=== PATIENT | female | born 1945 | race Caucasian/White ===

== ENCOUNTER 2021-05-10 09:03 | Emergency (ER) | payer MEDICARE, BC ==
[2021-05-10] MEDS ORDERED: GI Cocktail Oral Solution 30 ML PO ONE (10:07)
[2021-05-10 10:12] LABS: ANION GAP 18.9 mEq/L (7-13); CHLORIDE,CL 100 mmol/L (98-107); SODIUM,NA 136 mmol/L (136-145)
--- NOTE | 2021-05-10 10:15 | EDM.PDOC ---
ED HPI GENERAL MEDICAL PROBLEM - General Chief Complaint: Chest Pain Stated Complaint: [id number] HEARTBURN FOR THE PAST FEW DAYS Time Seen by Provider: 05/10/21 09:50 Source of Information: Reports: Patient, RN, RN Notes Reviewed History Limitations: Reports: No Limitations - History of Present Illness INITIAL COMMENTS - FREE TEXT/NARRATIVE: Luisa is a 75 y/o female who presents to the ED via personal vehicle with complaints of chest pain and shortness of breath. The patient reports her symptoms began approximately five days ago and have progressed in severity over that time. She characterizes her pain as a dull ache that radiates across her chest into both arms. She has not taken any medications for her symptoms. 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 The patient denies fever, shaking chills, vision changes, palpitations, nausea, vomiting, abdominal pain, dysuria, hematuria, diarrhea, or constipation. Her last meal was last evening at 1800. Chest Pain Score (Numeric/FACES): 7 - Related Data Allergies Allergy/AdvReac Type Severity Reaction Status Date / Time GIO Inhibitors Allergy Other Verified 05/10/21 09:34 Home Meds: Home Meds Insulin Glarg,Human.Rec.Analog [Lantus Solostar] 12 units SQ DAILY 05/10/21 [History] Insulin Lispro [HumaLOG] 6 units SQ BID 05/10/21 [History] Insulin Regular, Human [Afrezza] 4 units SQ ASDIRECTED 05/10/21 [History] Metoprolol Succinate [Toprol XL 100mg] 100 mg PO DAILY 05/10/21 [History] Nitroglycerin 0.4 mg SL ASDIRECTED PRN 05/10/21 [History] Torsemide [Demadex] 20 mg PO DAILY 05/10/21 [History] allopurinoL [Zyloprim] 100 mg PO DAILY 05/10/21 [History] amLODIPine [Norvasc] 5 mg PO DAILY 05/10/21 [History] atorvaSTATin [Lipitor] 10 mg PO DAILY 05/10/21 [History] Past Medical History HEENT History: Reports: Cataract Cardiovascular History: Reports: Hypertension, SD, Stents Respiratory History: Reports: None Gastrointestinal History: Reports: GERD Genitourinary History: Reports: None [employer] History: Reports: None Musculoskeletal History: Reports: Other (See Below) Other Musculoskeletal History: Right femur fracture with joshua placement Neurological History: Reports: None Psychiatric History: Reports: None Endocrine/Metabolic History: Reports: Diabetes, Type II Hematologic History: Reports: Anemia Immunologic History: Reports: None Oncologic (Cancer) History: Reports: None Dermatologic History: Reports: None - Past Surgical History Head Surgeries/Procedures: Reports: None HEENT Surgical History: Reports: Cataract Surgery Musculoskeletal Surgical History: Reports: Other (See Below) Other Musculoskeletal Surgeries/Procedures:: Joshua placement right femur Social & Family History - Tobacco Use Tobacco Use Status *Q: Never Tobacco User Second Hand Smoke Exposure: No - Caffeine Use Caffeine Use: Reports: Soda - Recreational Drug Use Recreational Drug Use: No ED ROS GENERAL - Review of Systems Review Of Systems: Comprehensive ROS is negative, except as noted in HPI. ED EXAM, GENERAL - Physical Exam Exam: See Below Exam Limited By: No Limitations General Appearance: Alert, Mild Distress (Ill-appearing), Thin Eye Exam: Bilateral Eye: EOMI, Normal Inspection, PERRL (4mm) Nose: Normal Inspection, Normal Mucosa, No Blood Throat/Mouth: Normal Inspection, Normal Lips, Normal Teeth, Normal Gums, Normal Oropharynx, Normal Voice, No Airway Compromise Head: Atraumatic, Normocephalic Neck: Normal Inspection, Supple, Non-Tender, Full Range of Motion. No: Lymphadenopathy (L) Respiratory/Chest: No Respiratory Distress, Chest Non-Tender, Decreased Breath Sounds, Rhonchi (To right upper and lower duvall). No: Wheezing, Retractions Cardiovascular: Normal Peripheral Pulses, Regular Rate, Rhythm, No Gallop, No JVD, No Murmur, No Rub. No: No Edema Peripheral Pulses: 2+: Radial (L), Radial (R) GI/Abdominal: Soft, Non-Tender, No Distention, No Abnormal Bruit, No Mass, Pelvis Stable, Abnormal Bowel Sounds (Hyperactive bowel sounds) (Female) Exam: Deferred Rectal (Female) Exam: Deferred Back Exam: Normal Inspection, Full Range of Motion Extremities: Normal Inspection, Normal Range of Motion, Non-Tender, Normal Capillary Refill, Pedal Edema (+2 pitting, bilaterally) Neurological: Alert, Oriented, CN II-XII Intact, Normal Cognition, Normal Gait, No Motor/Sensory Deficits Psychiatric: Normal Affect, Normal Mood Skin Exam: Warm, Dry, Intact, No Rash, Pallor. No: Cyanosis, Jaundice, Mottled Course - Vital Signs Last Recorded V/S: Last Vital Signs Temp 98.4 F 05/10/21 14:28 Pulse 62 05/10/21 14:28 Resp 16 05/10/21 14:28 BP 113/53 L 05/10/21 14:28 Pulse Ox 93 L 05/10/21 14:28 - Orders/Labs/Meds Labs: Laboratory Tests 05/10/21 05/10/21 05/10/21 Range/Units 09:36 09:36 09:36 WBC 12.7 H (5.0-10.0) 10^3/uL RBC 4.53 (4.2-5.4) 10^6/uL Hgb 14.0 (12.0-16.0) g/dL Hct 42.2 (37.0-47.0) % MCV 93.2 (80-100) fL MCH 30.9 (27.0-34.0) pg MCHC 33.2 (33.0-35.0) g/dL Plt Count 314 (150-450) 10^3/uL Neut % (Auto) 83.4 H (42.2-75.2) % Lymph % (Auto) 8.3 L (20.5-50.1) % Dixie % (Auto) 8.0 (2-8) % Eos % (Auto) 0.1 L (1.0-3.0) % Baso % (Auto) 0.2 (0.0-1.0) % Sodium 136 (136-145) mmol/L Potassium 4.9 (3.5-5.1) mmol/L Chloride 100 (98-107) mmol/L Carbon Dioxide 22 (21-32) mmol/L Anion Gap 18.9 H (7-13) mEq/L BUN 49 H (7-18) mg/dL Creatinine 1.35 H (0.55-1.02) mg/dL Est Cr Clr Drug Dosing 29.97 mL/min Estimated GFR (MDRD) 38 BUN/Creatinine Ratio 36.3 (No establ ref range) Glucose 234 H (70-99) mg/dL Lactic Acid 1.6 (0.4-2.0) mmol/L Calcium 9.6 (8.5-10.1) mg/dL Magnesium 2.3 (1.8-2.4) mg/dL Total Bilirubin 1.3 H (0.2-1.0) mg/dL AST 32 (15-37) U/L ALT 34 (14-59) U/L Alkaline Phosphatase 300 H (46-116) U/L Troponin I High Sens 143 H* (<=51) pg/mL C-Reactive Protein 16.4 H (0.0-0.9) mg/dL B-Natriuretic Peptide 1630 H (0-100) pg/ml Total Protein 8.6 H (6.4-8.2) g/dL Albumin 3.6 (3.4-5.0) g/dL Globulin 5.0 Albumin/Globulin Ratio 0.7 Amylase (25-115) U/L Lipase (73-393) U/L Ethyl Alcohol < 3 (0) mg/dL SARS-CoV-2 RNA (VANESSA) (NEGATIVE) 05/10/21 05/10/21 05/10/21 Range/Units 09:36 12:55 13:35 WBC (5.0-10.0) 10^3/uL RBC (4.2-5.4) 10^6/uL Hgb (12.0-16.0) g/dL Hct (37.0-47.0) % MCV (80-100) fL MCH (27.0-34.0) pg MCHC (33.0-35.0) g/dL Plt Count (150-450) 10^3/uL Neut % (Auto) (42.2-75.2) % Lymph % (Auto) (20.5-50.1) % Dixie % (Auto) (2-8) % Eos % (Auto) (1.0-3.0) % Baso % (Auto) (0.0-1.0) % Sodium (136-145) mmol/L Potassium (3.5-5.1) mmol/L Chloride (98-107) mmol/L Carbon Dioxide (21-32) mmol/L Anion Gap (7-13) mEq/L BUN (7-18) mg/dL Creatinine (0.55-1.02) mg/dL Est Cr Clr Drug Dosing mL/min Estimated GFR (MDRD) BUN/Creatinine Ratio (No establ ref range) Glucose (70-99) mg/dL Lactic Acid (0.4-2.0) mmol/L Calcium (8.5-10.1) mg/dL Magnesium (1.8-2.4) mg/dL Total Bilirubin (0.2-1.0) mg/dL AST (15-37) U/L ALT (14-59) U/L Alkaline Phosphatase (46-116) U/L Troponin I High Sens 580 H* (<=51) pg/mL C-Reactive Protein (0.0-0.9) mg/dL B-Natriuretic Peptide (0-100) pg/ml Total Protein (6.4-8.2) g/dL Albumin (3.4-5.0) g/dL Globulin Albumin/Globulin Ratio Amylase 38 (25-115) U/L Lipase 59 L (73-393) U/L Ethyl Alcohol (0) mg/dL SARS-CoV-2 RNA (VANESSA) Negative (NEGATIVE) Meds: Medications Discontinued Medications Generic Name Dose Route Start Last Admin Trade Name Freq PRN Reason Stop Dose Admin Al Hydroxide/Mg Hydroxide 30 ml 05/10/21 10:07 05/10/21 10:18 Gi Cocktail Oral Solution 30 Ml PO 05/10/21 10:08 30 ml ONETIME ONE Administration Aspirin 324 mg 05/10/21 11:09 05/10/21 11:43 Aspirin 81 Mg Tab.Chew PO 05/10/21 11:10 324 mg ONETIME ONE Administration Furosemide 40 mg 05/10/21 10:38 05/10/21 10:46 Furosemide 40 Mg/4 Ml Vial IVPUSH 05/10/21 10:39 40 mg ONETIME ONE Administration Heparin Sodium (Porcine) 4,000 units 05/10/21 14:17 05/10/21 14:35 Heparin Sodium 5,000 Units/Ml Vial IVPUSH 05/10/21 14:18 4,000 units .BOLUS ONE Administration Ceftriaxone Sodium 1 gm/ 50 mls @ 100 mls/hr 05/10/21 11:09 05/10/21 11:43 Sodium Chloride IV 05/10/21 11:38 100 mls/hr ONETIME ONE Administration Azithromycin 500 mg/ Sodium 250 mls @ 250 mls/hr 05/10/21 11:12 05/10/21 12:34 Chloride IV 05/10/21 12:11 250 mls/hr ONETIME ONE Administration Heparin Sodium/Sodium Chloride 25,000 units in 500 mls @ 15.023 mls/hr 05/10/21 14:30 05/10/21 14:35 Heparin 25,000 Units In 1/2 Ns 500 Ml IV 12 units/kg/hr TITRATE VAL 15.023 mls/hr Administration Protocol 12 UNITS/KG/HR - Radiology Interpretation Free Text/Narrative:: [facility] [place] [facility] Final Radiology Report Call: [phone] assistance Online chat: [email or web address] Name: LUISA YU Age: 75Years F Date: 05/10/2021 SSN: -- : [id number] Study: CR CHEST 1V FRONTAL Requesting Physician: Lachelle Le Images: 1 Addl Studies: Provided Clinical History: Chest pain Contrast: Contrast Medium: Contrast Amount: Contrast Method: CONFIDENTIALITY STATEMENT This report is intended only for use by the referring physician, and only in accordance with law. If you received this in error, call [phone]. Page 1 of 1 PROCEDURE INFORMATION: Exam: XR Chest Exam date and time: 05/10/2021 10:09 AM Age: 75 years old Clinical indication: Pain; Left-sided; Additional info: Chest pain TECHNIQUE: Imaging protocol: XR of the chest. Views: 1 view. COMPARISON: No relevant prior studies available. FINDINGS: Tubes, catheters and devices: Telemetry leads overlying the chest. Lungs: Mild vascular congestion and right peribronchial thickening. Multifocal patchy bilateral lung opacities predominating at the right lung base compatible with pneumonitis. Pleural spaces: Unremarkable. No pleural effusion. No pneumothorax. Heart/Mediastinum: Atherosclerotic calcification of the aorta. No cardiomegaly. Bones/joints: Unremarkable. IMPRESSION: Multifocal opacities predominating within the right lung base suspicious for pneumonitis or interstitial edema. Thank you for allowing us to participate in the care of your patient. Dictated and Authenticated by: Sherri Robins MD 05/10/2021 10:55 AM Central Time ([place] & [place]) - Re-Assessments/Exams Free Text/Narrative Re-Assessment/Exam: 05/10/21 GI cocktail administered with improvement in pain stated by patient. CXR revealed infiltrated vs pulmonary edema. WBC 12.7 with shift. BNP 1630. Rocephin 1gm IVPB and Azithromycin 500mg IVPB administered. Lasix 40mg IVP administered. Troponin mildly elevated at 148, will move patient to extended stay and trend troponin. Findings of examination, imaging, and lab work reviewed with patient and sister. Patient verbalized understanding and agreement with the plan of care. Troponin increased to 580 after four hours. Heparin gtt and bolus initiated. Case discussed with Dr. Murphy who kindly accepted patient for inpatient admission. Lab findings and plan of care reviewed with patient who verbalized understanding and agreement. Departure - Departure Time of Disposition: 14:49 Disposition: DC/Tfer to Acute Hospital 02 Reason for Transfer *Q: Primary PCI Indicated Condition: Good Clinical Impression: Non-STEMI (non-ST elevated myocardial infarction) Congestive heart failure (CHF) Qualifiers: Heart failure type: unspecified Heart failure chronicity: unspecified Qualified Code(s): I50.9 - Heart failure, unspecified Referrals: PCP,None [Primary Care Provider] - Forms: ED Department Discharge, Interfacility Transfer QUIQUE Sepsis Event Note (ED) - Evaluation Sepsis Screening Result: No Definite Risk
[2021-05-10] MEDS ORDERED: Furosemide 40 MG/4 ML VIAL IVPUSH ONE (10:38)
--- NOTE | 2021-05-10 10:55 | CR ---
PROCEDURE INFORMATION: Exam: XR Chest Exam date and time: 05/10/2021 10:09 AM Age: 75 years old Clinical indication: Pain; Left-sided; Additional info: Chest pain TECHNIQUE: Imaging protocol: XR of the chest. Views: 1 view. COMPARISON: No relevant prior studies available. FINDINGS: Tubes, catheters and devices: Telemetry leads overlying the chest. Lungs: Mild vascular congestion and right peribronchial thickening. Multifocal patchy bilateral lung opacities predominating at the right lung base compatible with pneumonitis. Pleural spaces: Unremarkable. No pleural effusion. No pneumothorax. Heart/Mediastinum: Atherosclerotic calcification of the aorta. No cardiomegaly. Bones/joints: Unremarkable. IMPRESSION: Multifocal opacities predominating within the right lung base suspicious for pneumonitis or interstitial edema.
[2021-05-10] MEDS ORDERED: cefTRIAXone 1 GM in Sodium Chloride 0.9% 50 ML IV ONE (11:09)
[2021-05-10] MEDS ORDERED: Aspirin 81 MG Tab.Chew PO ONE (11:09)
[2021-05-10] MEDS ORDERED: Azithromycin 500 MG in Sodium Chloride 0.9% 250 ML IV ONE (11:12)
[2021-05-10] MEDS ORDERED: Heparin Sodium 5,000 Units/ML Vial IVPUSH ONE (14:17)
[2021-05-10] MEDS ORDERED: Heparin Sodium/0.45% NaCl 25,000 UNITS/500 ML BAG IV SCH (14:30)
== END 2021-05-10 15:50 ==
LOC: DL.ED 09:03
DX: I21.4 Non-ST elevation (NSTEMI) myocardial infarction (principal); I11.0 Hypertensive heart disease with heart failure; I50.9 Heart failure, unspecified; I25.2 Old myocardial infarction; E11.9 Type 2 diabetes mellitus without complications; Z88.8 Allergy status to other drugs, medicaments and biological substances; Z79.899 Other long term (current) drug therapy; Z20.822 Contact with and (suspected) exposure to COVID-19; Z79.4 Long term (current) use of insulin
CPT/HCPCS: 36415; 71045; 80053; 80307; 82150; 83605; 83690; 83735; 83880; 84484; 85025; 86140; 96365; 96367; 96375; 99285; 99285-25; A9270-GY; J0456; J0696; J1644; J1940; J7050; U0002